=== PATIENT | female | born 1940 | race Caucasian/White ===

== ENCOUNTER → 2016-10-23 | Outpatient (CLI) | payer MEDICARE, BC ==
[~2016-10-23] MED LIST: B-12 100 MCG PO; B-12 500 MCG; CLEOCIN HCL300 MG PO; DECADRON 4MG TAB4 MG PO; ELIQUIS 5MG PO; HYGROTON 2525 MG/TAB; HYGROTON 2525 MG/TAB PO; PROBIOTIC FORMU1 CAP PO; TENORMIN 2525 MG/TAB PO; TENORMIN 5050 MG/TAB PO; VTAMINC250TA; VTAMINC250TA PO; ZOFRAN 4MG T4 MG/TAB PO; ZOFRAN ODT4 MG PO; ZOFRAN8 MG PO
== END ==
LOC: COL.VAS 15:09
DX: I82.491 Acute embolism and thrombosis of other specified deep vein of right lower extremity (principal); M79.605 Pain in left leg; M79.604 Pain in right leg; M79.89 Other specified soft tissue disorders; C34.12 Malignant neoplasm of upper lobe, left bronchus or lung

== ENCOUNTER 2016-10-28 22:38 | Observation (INO) | payer MEDICARE, BC ==
[~2016-10-28] VITALS: Ht 162.6 cm; Wt 57.6 kg
[2016-10-28] MEDS ORDERED: TENORMIN 5050 MG/TAB PO (22:52)
[2016-10-28] MEDS ORDERED: DECADRON 4MG TAB4 MG PO (22:52)
[2016-10-28] MEDS ORDERED: ELIQUIS 5MG PO (22:52)
[2016-10-28] MEDS ORDERED: HYGROTON 2525 MG/TAB PO (22:53)
[2016-10-28 23:37] LABS: MEAN CELL VOLUME 78 fl (80.0-100.0); MEAN CORPUSCULAR HEMOGLOBIN 26 pg (27.0-31.0); MEAN CORPUSCULAR HGB CONC 34 g/dl (33.0-37.0); MEAN PLATELET VOLUME 8.4 fl (7.4-10.4); PLATELET COUNT 199 K/mm3 (130-400); RED BLOOD COUNT 4.55 M/mm3 (4.10-5.30)
[2016-10-28 23:53] LABS: ALBUMIN 3.9 gm/dL (3.5-5.0); BILIRUBIN,TOTAL 1.6 mg/dL (0.0-1.0); CALCIUM 9.9 mg/dL (8.4-10.2); CREATININE, serum 0.66 mg/dL (0.52-1.25); POTASSIUM 3.8 mmol/L (3.4-5.0); TOTAL PROTEIN 7.4 gm/dL (6.4-8.2)
[2016-10-29 00:08] LABS: HEMATOCRIT 35.3 % (37.0-47.0)
[2016-10-29 00:09] LABS: ADD PATHOLOGY DIFF REVIEW NO
[2016-10-29 00:28] LABS: ANISOCYTOSIS 1+; BAND 30 % (0-10); NEUTROPHILS 60 % (42.0-75.2); TOTAL CELLS COUNTED 100
[2016-10-29 00:29] LABS: MICROCYTOSIS 1+; PLATELET ESTIMATE NORMAL (NORMAL)
[2016-10-29 01:13] LABS: PH 6 (5-8); SQUAMOUS EPITHELIAL 0-2 /hpf; URINE APPEARANCE Hazy; URINE BACTERIA Many /hpf; URINE BILIRUBIN Negative (NEGATIVE); URINE BLOOD Negative (NEGATIVE); URINE COLOR Yellow; URINE GLUCOSE Negative (NEGATIVE); URINE KETONE Trace (NEGATIVE); URINE RBC 0-2 /hpf; URINE UROBILINOGEN Negative (NEGATIVE)
[2016-10-29] MEDS ORDERED: B-12 100 MCG PO (01:45)
[2016-10-29] MEDS ORDERED: VTAMINC250TA PO (01:46)
[2016-10-29] MEDS ORDERED: ELIQUIS 5MG PO (01:47)
[2016-10-29] MEDS ORDERED: ZOFRAN8 MG PO (01:48)
[2016-10-29 03:11] VITALS: BP 140/71; PULSE 88; TEMP 98.2
[2016-10-29 06:11] VITALS: BP 159/60; PULSE 83; TEMP 98.4
[2016-10-29 10:17] VITALS: BP 135/57; PULSE 50; TEMP 97.8
[2016-10-29 14:22] VITALS: BP 151/60; PULSE 41; TEMP 98.8
[2016-10-29 17:38] VITALS: BP 155/67; PULSE 48; TEMP 98.1
[2016-10-29 22:44] VITALS: BP 125/55; PULSE 45; TEMP 97.6
[2016-10-30 02:20] VITALS: BP 125/70; PULSE 42; TEMP 97.9
[2016-10-30 06:09] VITALS: BP 126/57; PULSE 44; TEMP 97.9
[2016-10-30 06:50] LABS: MEAN CELL VOLUME 77 fl (80.0-100.0); MEAN CORPUSCULAR HGB CONC 34 g/dl (33.0-37.0); MEAN PLATELET VOLUME 8.3 fl (7.4-10.4); PLATELET COUNT 129 K/mm3 (130-400); RED BLOOD COUNT 3.74 M/mm3 (4.10-5.30); REDCELL DISTRIBUTION WIDTH-CV 18.6 % (11.5-14.5)
[2016-10-30 06:53] LABS: ADD PATHOLOGY DIFF REVIEW NO; HEMATOCRIT 28.8 % (37.0-47.0); HEMOGLOBIN 9.8 g/dl (12.5-16.0); MEAN CORPUSCULAR HEMOGLOBIN 26 pg (27.0-31.0); WHITE BLOOD COUNT 1.6 K/mm3 (4.8-10.8)
[2016-10-30 07:09] LABS: BAND 9 % (0-10); EOSINOPHIL 3 % (0-4); METAMYELOCYTE 1 % (0-0); NEUTROPHILS 45 % (42.0-75.2); PLATELET ESTIMATE NORMAL (NORMAL); TOTAL CELLS COUNTED 100
[2016-10-30 07:10] LABS: CALCIUM 8.6 mg/dL (8.4-10.2); CREATININE, serum 0.54 mg/dL (0.52-1.25); POTASSIUM 3.2 mmol/L (3.4-5.0)
[2016-10-30 09:39] VITALS: BP 153/55; PULSE 42
[2016-10-30 12:02] LABS: MAGNESIUM 1.5 mg/dL (1.6-2.3)
[2016-10-30] MEDS ORDERED: ZOFRAN ODT4 MG PO (12:09)
[2016-10-30 13:41] VITALS: BP 132/50; PULSE 43
[2016-10-30] MEDS ORDERED: CLEOCIN HCL300 MG PO (13:41)
[2016-10-30 15:47] VITALS: BP 132/50; PULSE 43; TEMP 97.9
== END 2016-10-30 16:44 ==
LOC: COL.ER 22:38 → SURG 10-29 01:40
PROVIDERS: Family Medicine
DX: R41.82 Altered mental status, unspecified (principal); N39.0 Urinary tract infection, site not specified; E86.0 Dehydration; I82.491 Acute embolism and thrombosis of other specified deep vein of right lower extremity; C34.91 Malignant neoplasm of unspecified part of right bronchus or lung; C25.9 Malignant neoplasm of pancreas, unspecified; C56.1 Malignant neoplasm of right ovary; C79.31 Secondary malignant neoplasm of brain; I10 Essential (primary) hypertension; D72.819 Decreased white blood cell count, unspecified; D61.818 Other pancytopenia; E87.6 Hypokalemia; E87.1 Hypo-osmolality and hyponatremia; R53.1 Weakness; K86.81 Exocrine pancreatic insufficiency
CPT/HCPCS: 99239; G0378; J0744; J2405; J7030; J8540

== ENCOUNTER → 2016-11-02 | Outpatient (REF) ==
[2016-11-02 16:46] LABS: MEAN CELL VOLUME 76 fl (80.0-100.0); MEAN CORPUSCULAR HGB CONC 34 g/dl (33.0-37.0); MEAN PLATELET VOLUME 9.7 fl (7.4-10.4); PLATELET COUNT 77 K/mm3 (130-400); RED BLOOD COUNT 3.64 M/mm3 (4.10-5.30); REDCELL DISTRIBUTION WIDTH-CV 17.8 % (11.5-14.5)
[2016-11-02 16:48] LABS: INR 1.4 (0.8-3.0); PROTHROMBIN TIME 16.2 SECONDS (9.7-12.8)
[2016-11-02 16:54] LABS: ADD PATHOLOGY DIFF REVIEW NO; HEMATOCRIT 27.7 % (37.0-47.0); HEMOGLOBIN 9.4 g/dl (12.5-16.0); MEAN CORPUSCULAR HEMOGLOBIN 26 pg (27.0-31.0); WHITE BLOOD COUNT 1.6 K/mm3 (4.8-10.8)
[2016-11-02 16:55] LABS: CALCIUM 8.6 mg/dL (8.4-10.2); CREATININE, serum 0.63 mg/dL (0.52-1.25); POTASSIUM 3.9 mmol/L (3.4-5.0)
[2016-11-02 17:18] LABS: BAND 10 % (0-10); NEUTROPHILS 52 % (42.0-75.2); TOTAL CELLS COUNTED 100
[2016-11-02 17:19] LABS: PLATELET ESTIMATE DECREASED (NORMAL)
== END ==
LOC: ZLAB.STJ 16:35
PROVIDERS: Family Medicine
DX: Z01.89 Encounter for other specified special examinations (principal)

== ENCOUNTER 2016-11-07 18:28 | Emergency (ER) | payer MEDICARE, BC ==
[~2016-11-07] VITALS: Ht 162.6 cm; Wt 45.5 kg
[~2016-11-07 18:28] MED LIST changes: -B-12 500 MCG; -HYGROTON 2525 MG/TAB; -PROBIOTIC FORMU1 CAP PO; -TENORMIN 2525 MG/TAB PO; -VTAMINC250TA; -ZOFRAN 4MG T4 MG/TAB PO
[2016-11-07 18:30] VITALS: TEMP 97.4
[2016-11-07 19:04] LABS: MEAN CELL VOLUME 78 fl (80.0-100.0); MEAN CORPUSCULAR HGB CONC 33 g/dl (33.0-37.0); PLATELET COUNT 165 K/mm3 (130-400); RED BLOOD COUNT 3.98 M/mm3 (4.10-5.30); REDCELL DISTRIBUTION WIDTH-CV 18.5 % (11.5-14.5)
[2016-11-07 19:05] LABS: HEMATOCRIT 30.9 % (37.0-47.0); HEMOGLOBIN 10.3 g/dl (12.5-16.0); MEAN CORPUSCULAR HEMOGLOBIN 26 pg (27.0-31.0)
[2016-11-07 19:06] LABS: ADD PATHOLOGY DIFF REVIEW NO
[2016-11-07 19:17] LABS: BAND 8 % (0-10); NEUTROPHILS 56 % (42.0-75.2); TOTAL CELLS COUNTED 100
[2016-11-07 19:20] LABS: ADJUSTED CALCIUM 10.1 mg/dL (8.4-10.2); ALBUMIN 3.2 gm/dL (3.5-5.0); C-REACTIVE PROTEIN 5.1 mg/dL (0.0-0.9); CALCIUM 9.5 mg/dL (8.4-10.2); CREATININE, serum 0.78 mg/dL (0.52-1.25); POTASSIUM 3.6 mmol/L (3.4-5.0); TOTAL PROTEIN 6.7 gm/dL (6.4-8.2)
[2016-11-07 19:22] LABS: ANISOCYTOSIS 2+; POIKILOCYTOSIS 2+; POLYCHROMASIA 1+; SPHEROCYTE 1+
[2016-11-07] MEDS ORDERED: PROBIOTIC FORMU1 CAP PO (19:36)
[2016-11-07] MEDS ORDERED: CLEOCIN HCL300 MG PO (19:37)
[2016-11-07] MEDS ORDERED: ELIQUIS 5MG PO (19:37)
[2016-11-07] MEDS ORDERED: TENORMIN 2525 MG/TAB PO (19:37)
[2016-11-07] MEDS ORDERED: B-12 500 MCG (19:38)
[2016-11-07] MEDS ORDERED: HYGROTON 2525 MG/TAB (19:38)
[2016-11-07] MEDS ORDERED: ZOFRAN 4MG T4 MG/TAB PO (19:38)
[2016-11-07] MEDS ORDERED: VTAMINC250TA (19:38)
[2016-11-07 20:20] VITALS: BP 129/68; PULSE 68
== END 2016-11-07 22:04 | disposition home or self-care (01) ==
LOC: COL.ER 18:28
PROVIDERS: Emergency Medicine
DX: R41.0 Disorientation, unspecified (principal); I10 Essential (primary) hypertension; C78.89 Secondary malignant neoplasm of other digestive organs; C79.61 Secondary malignant neoplasm of right ovary; C79.31 Secondary malignant neoplasm of brain